=== PATIENT | female | born 2000 | race Caucasian/White ===

== ENCOUNTER 2024-06-05 10:08 | Emergency (ER) | payer OTHER ==
[~2024-06-05] VITALS: Ht 165.1 cm; Wt 122.3 kg
[~2024-06-05 10:08] MED LIST: VENTOLIN HFA18 GM INH
[2024-06-05] MEDS ORDERED: PANTOPRAZOLE SODIUM 40 MG/10 ML VIAL IV ONE (10:30)
[2024-06-05] MEDS ORDERED: SODIUM CHLORIDE 0.9% 1,000 ML IV ONE (10:30)
[2024-06-05] MEDS ORDERED: LIDOCAINE & ANTACID 35 ML BTL PO ONE (10:30)
[2024-06-05 10:44] LABS: BASOPHILS 0.5 % (0-2); EOSINOPHILS 1.2 % (0-6); HEMATOCRIT 36.5 % (35.0-50.0); HEMOGLOBIN 11.9 g/dL (12.0-18.0); LYMPHOCYTES 29.6 % (24-44); MCH 26.3 (27-36); MCHC 32.6 g/dl (30-36); MCV 80.6 fl (81-99); MONOCYTES 7.8 % (0-12); NEUTROPHILS 60.9 % (39-80); PLATELET COUNT 295 K/uL (140-440); RBC 4.54 M/ul (4.3-5.7); RDW 14.3 (10.5-15.0)
[2024-06-05 10:57] LABS: ALBUMIN 3.3 g/dL (3.4-5.0); ALBUMIN/GLOBULIN RATIO 0.8 (1.1-2.4); ANION GAP 14.1 (7-21); BILIRUBIN, TOTAL 0.3 ng/dL (0.2-1.0); BUN/CREATININE RATIO 18.33 (6.0-28.6); CALCIUM 8.8 mg/dL (8.5-10.1); CREATININE, SERUM 0.6 mg/dL (0.55-1.02); POTASSIUM 4.1 mmol/L (3.5-5.1); PROTEIN, TOTAL 7.4 g/dL (6.4-8.2)
[2024-06-05 11:52] LABS: BILIRUBIN, URINE NEGATIVE (negative); BLOOD/HGB, URINE NEGATIVE (Negative); KETONE, URINE NEGATIVE (Negative); LEUK ESTERASE, URINE NEGATIVE (negative); NITRITE, URINE NEGATIVE (negative); PH, URINE 5.5 (5-7)
[2024-06-05] MEDS ORDERED: OMEPRAZOLE20 MG PO (12:07)
[2024-06-05 12:22] VITALS: BP 123/71
== END 2024-06-05 12:22 | disposition home or self-care (01) ==
LOC: ED 10:08
PROVIDERS: Emergency Medicine
DX: R10.13 Epigastric pain (principal); K62.5 Hemorrhage of anus and rectum; Z91.040 Latex allergy status; Z91.02 Food additives allergy status
CPT/HCPCS: 36415; 80053; 81003; 83605; 83690; 84703; 85025; 96374; 99284-25; J2470; J7030

== ENCOUNTER 2024-09-06 05:36 | Emergency (ER) | payer OTHER ==
[~2024-09-06] VITALS: Ht 165.1 cm; Wt 123.8 kg
[~2024-09-06 05:36] MED LIST changes: +OMEPRAZOLE20 MG PO
[2024-09-06 05:59] LABS: BASOPHILS 0.1 % (0-2); EOSINOPHILS 0.9 % (0-6); HEMATOCRIT 39.1 % (35.0-50.0); HEMOGLOBIN 12.6 g/dL (12.0-18.0); LYMPHOCYTES 8.6 % (24-44); MCH 25.5 (27-36); MCHC 32.4 g/dl (30-36); MCV 78.9 fl (81-99); MONOCYTES 5.1 % (0-12); NEUTROPHILS 85.3 % (39-80); PLATELET COUNT 301 K/uL (140-440); RBC 4.95 M/ul (4.3-5.7); RDW 14.5 (10.5-15.0)
[2024-09-06] MEDS ORDERED: ondansetron HCL 4 MG/2 ML VIAL IV ONE ×2 (06:00→08:15)
[2024-09-06] MEDS ORDERED: KETOROLAC TROMETHAMINE 30 MG/ML VIAL IV ONE (06:15)
[2024-09-06] MEDS ORDERED: FAMOTIDINE 20 MG/ 2 ML VIAL IV ONE (06:15)
[2024-09-06] MEDS ORDERED: LACTATED RINGER'S 1,000 ML IV ONE (06:15)
[2024-09-06 06:20] LABS: ALBUMIN 3.7 g/dL (3.4-5.0); ALBUMIN/GLOBULIN RATIO 0.86 (1.1-2.4); BILIRUBIN, TOTAL 0.4 ng/dL (0.2-1.0); BUN/CREATININE RATIO 17.94 (6.0-28.6); CALCIUM 8.9 mg/dL (8.5-10.1); CREATININE, SERUM 0.78 mg/dL (0.55-1.02); MAGNESIUM 1.7 mg/dL (1.8-2.4)
[2024-09-06] MEDS ORDERED: diphenhydrAMINE HCL 50 MG/ML VIAL IV ONE (06:30)
[2024-09-06] MEDS ORDERED: ONDANSETRON 4 MG HOME.PACK SL ONE (07:00)
[2024-09-06 08:47] LABS: BILIRUBIN, URINE NEGATIVE (negative); BLOOD/HGB, URINE NEGATIVE (Negative); KETONE, URINE NEGATIVE (Negative); LEUK ESTERASE, URINE NEGATIVE (negative); NITRITE, URINE NEGATIVE (negative)
[2024-09-06 09:05] VITALS: BP 120/76
[2024-09-06 09:08] LABS: AMPHETAMINES, URINE NEGATIVE (NEGATIVE); BARBITURATES, URINE NEGATIVE (NEGATIVE); BENZODIAZEPINE, URINE NEGATIVE (NEGATIVE); BUPRENORPHINE, URINE NEGATIVE (NEGATIVE); CANNABINOID, URINE NEGATIVE (NEGATIVE); COCAINE, URINE NEGATIVE (NEGATIVE); ECSTASY, URINE NEGATIVE (NEGATIVE); FENTANYL, URINE NEGATIVE (NEGATIVE); METHADONE, URINE NEGATIVE (NEGATIVE); OPIATES, URINE NEGATIVE (NEGATIVE); OXYCODONE, URINE NEGATIVE (NEGATIVE); PHENCYCLIDINE, URINE NEGATIVE (NEGATIVE)
== END 2024-09-06 09:05 | disposition home or self-care (01) ==
LOC: ED 05:36
PROVIDERS: Internal Medicine
DX: K80.20 Calculus of gallbladder without cholecystitis without obstruction (principal); J45.909 Unspecified asthma, uncomplicated; E66.01 Morbid (severe) obesity due to excess calories; Z91.018 Allergy to other foods; Z91.040 Latex allergy status; Z79.899 Other long term (current) drug therapy
CPT/HCPCS: 36415; 76705; 80053; 80307; 81003; 83690; 83735; 84703; 85025; 96361; 96374; 96375; 96376; 99284-25; A9270; J1200; J1885; J2405; J7121

== ENCOUNTER 2024-10-13 18:53 | Emergency (ER) | payer OTHER ==
[~2024-10-13] VITALS: Ht 165.1 cm; Wt 124.0 kg
[2024-10-13] MEDS ORDERED: predniSONE 20 MG TAB PO ONE (21:00)
[2024-10-13] MEDS ORDERED: ALBUTEROL/IPRATROPIUM 3 ML NEB INH ONE (21:00)
[2024-10-13 21:42] LABS: CORONAVIRUS COVID-19 AG NEGATIVE (NEGATIVE); INFLUENZA A AG NEGATIVE (NEGATIVE); INFLUENZA B AG NEGATIVE (NEGATIVE)
[2024-10-13] MEDS ORDERED: METHYLPREDNISOLO4 M1 PO (21:47)
[2024-10-13 22:02] VITALS: BP 110/71
[2024-10-14] MEDS ORDERED: ATIVAN1 MG PO (17:53)
== END 2024-10-13 22:02 | disposition home or self-care (01) ==
LOC: ED 18:53
PROVIDERS: Internal Medicine
DX: J45.901 Unspecified asthma with (acute) exacerbation (principal); Z91.040 Latex allergy status; Z91.018 Allergy to other foods; Z79.899 Other long term (current) drug therapy
CPT/HCPCS: 36415; 71045; 94640; 99285-25; J7512

== ENCOUNTER 2024-10-14 16:06 | Emergency (ER) | payer OTHER ==
[~2024-10-14] VITALS: Ht 165.1 cm; Wt 121.8 kg
[~2024-10-14 16:06] MED LIST changes: +METHYLPREDNISOLO4 M1 PO
--- OUTSIDE RECORDS SUMMARY | 2024-10-14 16:13 | XMS ---
PreManage Notification: MAGNUS ROSALES Security Full Service Supervisor Events No recent Security Events currently on file CRITERIA MET - [facility] [place] - 2 Visits in 30 Days CARE PROVIDERS -, [facility] Dentist: Technician Trainee [facility] PHONE: [phone] -, [place]- Dentist: Technician Trainee Current [facility] PHONE: [phone] [facility]: [facility] FAMILY PHONE: [phone] Krystle has no Care Guidelines for this patient. E.D. VISIT COUNT (12 MO.) 5 [facility] Workman TOTAL 5 NOTE: Visits indicate total known visits. ED/UCC VISIT TRACKING (12 MO.) 10/14/2024 16:07 [facility] [place] TYPE: Emergency COMPLAINT: - TROUBLE BREATHING 10/13/2024 18:54 [facility] [place] TYPE: Emergency COMPLAINT: - TROUBLE BREATHING 09/06/2024 05:37 [facility] [place] TYPE: Emergency COMPLAINT: - VOMITING DIAGNOSES: - Allergy to other foods - Calculus of gallbladder without cholecystitis without obstruction - Latex allergy status - Morbid (severe) obesity due to excess calories - Nausea with vomiting, unspecified - Other penitentiary (current) drug therapy - Unspecified asthma, uncomplicated 06/05/2024 10:[address] [facility] [place] TYPE: Emergency COMPLAINT: - ABDOMINAL PAIN DIAGNOSES: - Epigastric pain - Food additives allergy status - Hemorrhage of anus and rectum - Latex allergy status - Unspecified abdominal pain 11/17/2023 17:[address] 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
[2024-10-14] MEDS ORDERED: KETOROLAC TROMETHAMINE 15 MG/ML VIAL IM ONE (16:45)
[2024-10-14] MEDS ORDERED: LORazepam 1 MG TAB PO ONE (17:15)
[2024-10-14] MEDS ORDERED: ATIVAN1 MG PO (17:53)
[2024-10-14 18:25] VITALS: BP 111/70
--- NOTE | 2024-10-14 19:53 | EKG ---
[facility] [address] [place] [address] Signed Sinus tachycardia Possible Left atrial enlargement Borderline ECG No previous ECGs available Confirmed by Janessa Lomax MD ([id number]) on 10/14/2024 7:53:16 PM Electronically Signed By: JANESSA LOMAX MD 10/14/241952 PATIENT NAME: MAGNUS ROSALES Electrocardiogram DATE OF : [birth year] PHYSICIAN: JANESSA LOMAX MD REPORT #: [id number] REPORT IS CONFIDENTIAL AND NOT TO BE RELEASED WITHOUT AUTHORIZATION
== END 2024-10-14 18:27 | disposition home or self-care (01) ==
LOC: ED 16:06
DX: J02.9 Acute pharyngitis, unspecified (principal); J45.909 Unspecified asthma, uncomplicated; Z91.040 Latex allergy status; Z91.018 Allergy to other foods
CPT/HCPCS: 87651; 93005; 93010; 96372; 99285; A9270-GY; J1885

== ENCOUNTER 2025-01-08 19:46 | Emergency (ER) | payer OTHER ==
[~2025-01-08] VITALS: Ht 165.1 cm; Wt 122.5 kg
[~2025-01-08 19:46] MED LIST changes: +ATIVAN1 MG PO
[2025-01-08] MEDS ORDERED: SODIUM CHLORIDE 0.9% 1,000 ML IV PRN (20:15)
[2025-01-08] MEDS ORDERED: ACETAMINOPHEN 500 MG TAB PO ONE (20:15)
[2025-01-08] MEDS ORDERED: ondansetron HCL 4 MG/2 ML VIAL IV ONE (20:30)
[2025-01-08] MEDS ORDERED: CEFTRIAXONE SODIUM 2 GM in SODIUM CHLORIDE 0.9% 100 ML IV ONE (20:30)
[2025-01-08 20:41] LABS: BASOPHILS 0.3 % (0.1-1.2); EOSINOPHILS 0.4 % (0.7-5.8); HEMATOCRIT 38.7 % (34.1-44.9); LYMPHOCYTES 13.2 % (19.3-51.7); MCH 25.5 PG (25.6-32.2); MCV 82.2 fL (79.4-94.8); MONOCYTES 10.7 % (4.7-12.5); NEUTROPHILS 75.1 % (34.0-71.1); PLATELET COUNT 274 K/uL (182-369); RBC 4.71 M/uL (3.93-5.22)
[2025-01-08 20:58] LABS: ALBUMIN 3.6 g/dL (3.4-5.0); ALBUMIN/GLOBULIN RATIO 0.86 (1.1-2.4); ANION GAP 15.5 (7-21); BILIRUBIN, TOTAL 0.3 mg/dL (0.2-1.0); BUN/CREATININE RATIO 15.58 (6.0-28.6); CALCIUM 9.1 mg/dL (8.5-10.1); CREATININE, SERUM 0.77 mg/dL (0.55-1.02); POTASSIUM 3.5 mmol/L (3.5-5.1); PROTEIN, TOTAL 7.8 g/dL (6.4-8.2)
[2025-01-08 21:01] LABS: LACTIC ACID, BLOOD 0.7 mmol/L (0.4-2.0)
[2025-01-08 21:03] LABS: BILIRUBIN, URINE NEGATIVE (negative); BLOOD/HGB, URINE SMALL (Negative); KETONE, URINE TRACE (Negative); LEUK ESTERASE, URINE NEGATIVE (negative); NITRITE, URINE NEGATIVE (negative); PH, URINE 5.5 (5-7)
[2025-01-08 21:17] LABS: EPITHELIAL CELLS, URINE SQUAMOUS 3+ /lpf (0-1+); RED BLOOD CELLS, URINE 0-1 /hpf (0-5); WHITE BLOOD CELLS, URINE 0-1 /HPF (0-5)
[2025-01-08 21:18] LABS: BACTERIA, URINE RARE /hpf (negative); CASTS, URINE NONE SEEN \\lpf; COLLECTION TYPE, URINE CLEAN CATCH; CRYSTALS, URINE NONE SEEN (0-1+); REFLEX CULTURE, URINE No (No)
[2025-01-08] MEDS ORDERED: DEXAMETHASONE SOD PHOS 10 MG/ML VIAL IV ONE (21:45)
[2025-01-08 22:26] VITALS: BP 116/75
--- NOTE | 2025-01-09 07:22 | EKG ---
[facility] [address] [facility] [place], [place] [address] Signed Sinus tachycardia Cannot rule out Inferior infarct , age undetermined Abnormal ECG When compared with ECG of 14-OCT-2024 16:24, No significant change was found Confirmed by Janessa Lomax MD ([id number]) on 01/09/2025 7:22:25 AM Electronically Signed By: JANESSA LOMAX MD 01/09/25721 PATIENT NAME: MAGNUS ROSALES Electrocardiogram DATE OF : [birth year] PHYSICIAN: JANESSA LOMAX MD REPORT #: [id number] REPORT IS CONFIDENTIAL AND NOT TO BE RELEASED WITHOUT AUTHORIZATION
== END 2025-01-08 22:32 | disposition home or self-care (01) ==
LOC: ED 19:46
PROVIDERS: Internal Medicine
DX: J02.9 Acute pharyngitis, unspecified (principal); J45.909 Unspecified asthma, uncomplicated; Z91.040 Latex allergy status; Z88.8 Allergy status to other drugs, medicaments and biological substances
CPT/HCPCS: 36415; 71045; 80053; 81001; 83605; 85025; 86308; 87040; 87651; 93005; 93010; 96365; 96375; 99284-25; A9270; J0696; J1100; J2405; J7030